=== PATIENT | female | born 1965 | race Caucasian/White ===

== ENCOUNTER → 2017-04-25 | Outpatient (CLI) | payer OTHER, MEDICAID | LOC: BHFA 09:00 | PROVIDERS: ATTEND Internal Medicine | DX: R00.2 Palpitations (principal) ==

== ENCOUNTER → 2017-05-07 | Outpatient (CLI) | payer OTHER, MEDICAID | LOC: BHLMT 10:45 | PROVIDERS: ATTEND Internal Medicine Interventional Cardiology | DX: R55 Syncope and collapse (principal) | CPT/HCPCS: 93306-PO ==

== ENCOUNTER 2018-01-27 07:32 | Day surgery (SDC) | payer OTHER, MEDICAID ==
[2018-01-27] MEDS ORDERED: LR 1,000 ML IV ONE (08:03)
[2018-01-27] MEDS ORDERED: LIDOCAINE 1% 2 ML INJ ID PRN (08:03)
--- NOTE | 2018-01-27 08:29 | PDANEPAE ---
ANE History of Present Illness 52 YO WITH ANEMIA FOR EVAL BY GI ANE Past Medical History - Cardiovascular History Hx Hypertension: No Hx Arrhythmias: No Hx Chest Pain: Yes Hx Coronary Artery / Peripheral Vascular Disease: No Hx CHF / Valvular Disease: No Hx Palpitations: Yes Cardiovascular History Comment: BP FLUCTUATES. BRADYCARDIA EPISODES. DYSLIPIDEMIA. CHEST PAIN. PJCs OCCAS. CONGENITAL ANOMALY R -CORONARY ARTERY. HX-SYNCOPAL EPISODES - Pulmonary History Hx COPD: Yes Hx Asthma/Reactive Airway Disease: Yes Hx Recent Upper Respiratory Infection: No Hx Oxygen in Use at Home: Yes O2 in Use at Home (L/minute): 02 2.5 L NOC Hx Sleep Apnea: Yes Sleep Apnea Screening Result - Last Documented: Positive Pulmonary History Comment: BRONCHITIS. MULTIPLE CHEMICAL SENSITIVITIES. SLEEP APNEA - NO CPAP CURRENTLY - Neurologic History Hx Cerebrovascular Accident: No Hx Seizures: No Hx Dementia: No Neurologic History Comment: CHILDHOOD SEIZURES. MULTIPLE HEAD TRAUMAS W/LOC - Endocrine History Hx Diabetes: No Hypothyroid: No Hyperthyroid: No Obesity: no - Renal History Hx Renal Disorders: Yes Renal History Comment: INCONTINENCE. GLOMERULAR NEPHRITIS - Liver History Hx Hepatic Disorders: Yes Hepatic History Comment: FATTY LIVER DISEASE - NON ALCOHOLIC & CYST - Neurological & Psychiatric Hx Hx Neurological and Psychiatric Disorders: Yes Neurological / Psychiatric History Comment: ANXIETY - Cancer History Hx Cancer: Yes Cancer History Comment: BASAL CELL REMOVED - Congenital Disorder History Hx Congenital Disorders: No - GI History GERD: no Hx Gastrointestinal Disorders: Yes Gastrointestinal History Comment: GERD. VASCULAR SML INTESTINAL ECTASIAS & BACTERIAL OVERGROWTH - Other Health History Other Health History: SCABIES RECURRENT - HANDS/ELBOWS. IRON DEFICIENCY ANEMIA - RECEIVES IRON INFUSIONS 2-3 X YRLY. HX - HYPO -GAMMA GLOBULNEMIA. DVT YEARS AGO L LEG. TROUBLESOME BLEEDER - POST OP & POST TRAUMA - Chronic Pain History Chronic Pain: Yes (LOW BACK PAIN) - Surgical History Prior Surgeries: CHOLECYSTECTOMY. L SHOULDER SCOPE. RECONSTRUCTION FACE - TRAUMA. BLEPHAROPLASTY. DOUBLE BALLOON ENTEROSCOPY GI PROCEDURE ANE Review of Systems Review of Systems: - Exercise capacity METS (RN): 2 METS ANE Patient History - Allergies Allergies/Adverse Reactions: codeine Allergy (Verified 01/27/18 08:15) NAUSEA & VOMITIN hydrocodone Allergy (Verified 01/27/18 08:15) NAUSEA & VOMITING ketamine Allergy (Verified 01/27/18 08:15) "OUT OF BODY EXPERIENCE" oxycodone [Oxycodone] Allergy (Verified 01/27/18 08:15) NAUSEA & VOMITING - Home Medications Home medications: home medication list seen and reviewed Home Medications: RETIN-A 04/07/10 [Last Taken 01/24/18] Albuterol Sulfate [Ventolin] 0 mg IH AD 08/26/11 [Last Taken 01/27/18] Clindamycin 01/17/15 [Last Taken 01/26/18] Pantoprazole Sodium 01/17/15 [Last Taken 01/26/18] Aspirin 01/21/18 [Last Taken 01/20/18] Dulera 100 Mcg/5 Mcg Inhaler 01/21/18 [Last Taken 01/26/18] Iprat-Albut 0.5-3(2.5) mg/3 ml 01/21/18 [Last Taken 01/27/18] Montelukast Sodium 01/21/18 [Last Taken 01/25/18] Namenda 5 mg (*) 01/21/18 [Last Taken 01/26/18] Permethrin 5% 01/21/18 [Last Taken 01/24/18] Ranitidine HCl 01/21/18 [Last Taken 01/26/18] - NPO status NPO Since - Liquids (Date): 01/26/18 NPO Since - Liquids (Time): 23:00 NPO Since - Solids (Date): 01/26/18 NPO Since - Solids (Time): 23:00 - Anes Hx Anes Hx: post operative cognitive dysfunction - Smoking Hx Smoking Status: Never smoked Marijuana use: No - Alcohol Use Alcohol Use: None - Family Anes Hx Family Anes Hx: none ANE Labs/Vital Signs - Vital Signs Height: 170.18 cm Weight: 71.668 kg ANE Physical Exam - Airway Neck exam: FROM Mallampati Score: Class 2 Mouth exam: normal dental/mouth exam - Pulmonary Pulmonary: no respiratory distress, clear to auscultation - Cardiovascular Cardiovascular: regular rate and rhythym, no murmur, rub, or gallop - ASA Status ASA Status: III ANE Anesthesia Plan Anesthesia Plan: GA with mask, MAC
[2018-01-27] MEDS ORDERED: PROPOFOL/EMULSION 500 MG/50 ML BOTTLE IV ONE (09:16)
[2018-01-27] MEDS ORDERED: LIDOCAINE 2% 2 ML INJ ONE ×2 (09:16)
--- NOTE | 2018-01-27 09:17 | PDGENHP ---
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 fhx cc dysphagia Pertinent Past, Social, Family History: no tobacco, very rare alcohol. fhx - stomch uncle, mouth cacner throat cancer. closed head injury Relevant Physical Exam: A+Ox3. CTA. S1S2, RR. +N S ,soft tnder no r/g Cardiorespiratory Assessment: class 3
[2018-01-27] MEDS ORDERED: NALOXONE HCL 0.4 MG/ML INJ IVP PRN (09:21)
--- NOTE | 2018-01-27 09:21 | POSTANESTH ---
Post Anesthetic Evaluation Cardiovascular Status: Normal, Stable Respiratory Status: Normal, Stable Level of Consciousness/Mental Status: Can Participate in Eval Pain Control: Adequate, Prn Tx Ordered Nausea/Vomiting Control: Adequate, Prn Tx Ordered Complications Possibly Related to Anesthesia: None Noted
[2018-01-27] MEDS ORDERED: PROPOFOL 200 MG/20 ML VIAL ONE (09:56)
--- NOTE | 2018-01-27 10:43 | GIREPORT ---
[facility] Surgical Services - Endoscopy Department Patient Name: Claudette Hutchinson Procedure Date: 01/27/2018 9:18 AM Patient Type: Outpatient Attending MD/ ER Physician: Italo Dumont Procedure: Colonoscopy Indications: Screening in patient at increased risk: Family history of 1st-degree relative with colorectal cancer before age 60 years Providers: Shukri Trujillo MD Medicines: Propofol per Anesthesia Complications: No immediate complications. Estimated blood loss: Minimal. Description of Procedure: After obtaining informed consent, the scope was passed under direct vis ion. Throughout the procedure, the patient's blood pressure, pulse, and oxyg en saturations were monitored continuously. The Colonoscope with irrigatio n channel was introduced through the anus and advanced to the terminal il eum, with identification of the appendiceal orifice and IC valve. The colono scopy was performed without difficulty. The patient tolerated the procedure w ell. The quality of the bowel preparation was good. Findings: The digital rectal exam was normal. The terminal ileum appeared normal. A few medium-mouthed diverticula were found in the sigmoid colon and descending colon. A 2 mm polyp was found in the recto-sigmoid colon. The polyp was remove d with a cold biopsy forceps. Resection and retrieval were complete. Giselle mated blood loss was minimal. Two polyps were found in the recto-sigmoid colon. The polyps were 3 to 4 mm in size. These polyps were removed with a piecemeal technique using a c old biopsy forceps. Resection and retrieval were complete. Estimated blood loss was minimal. The exam was otherwise without abnormality. Estimated Blood Loss: Estimated blood loss was minimal. Post Op Diagnosis: - The examined portion of the ileum was normal. - Diverticulosis in the sigmoid colon and in the descending colon. - One 2 mm polyp at the recto-sigmoid colon, removed with a cold biopsy forceps. Resected and retrieved. - Two 3 to 4 mm polyps at the recto-sigmoid colon, removed piecemeal us ing a cold biopsy forceps. Resected and retrieved. - The examination was otherwise normal. Recommendation: - Await pathology results. - My office will call with the pathology result with 5-7 days. If you h ave not heard from my office by 12-14, do not assume the pathology is ana l, please call [phone] to get the pathology results. - Repeat colonoscopy in 5 years. - High fiber diet indefinitely. - 30-35 grams of dietary fiber per day. Can use supplemental fiber. - A high fiber diet may decrease risk of complications from diverticulo sis. There is no need to avoid seeds or nuts. - Patient has a contact number available for emergencies. The signs and symptoms of potential delayed complications were discussed with the pat ient. Return to normal activities tomorrow. Written discharge instructions we re provided to the patient. - Continue present medications. - See EGD for other recommendations - Return to GI clinic as previously scheduled. - Return to primary care physician as previously scheduled. - Thank you for allowing me to help in your patient's care. Do not hesi jimenez to call with any questions. Attending Participation: I personally performed the entire procedure. Ronnie Watt M.D Shukri Trujillo MD 01/27/2018 10:42:52 AM This report has been signed electronicallyMathew MD Ronnie Number of Addenda: 0 Note Initiated On: 01/27/2018 9:18 AM Total Procedure Duration Time 0 hours 16 minutes 45 seconds [email or web address]
--- NOTE | 2018-01-27 10:48 | GIREPORT ---
[facility] Surgical Services - Endoscopy Department Patient Name: Claudette Hutchinson Procedure Date: 01/27/2018 9:15 AM Patient Type: Outpatient Attending MD/ ER Physician: Italo Dumont Procedure: Upper GI endoscopy Indications: Dysphagia Providers: Shukri Trujillo MD Medicines: Propofol per Anesthesia = Iv genreal w/o airway Complications: No immediate complications. Estimated blood loss: Minimal. Description of Procedure: After obtaining informed consent, the endoscope was passed under direct vision. Throughout the procedure, the patient's blood pressure, pulse, and oxygen saturations were monitored continuously. The Endoscope was intro duced through the mouth, and advanced to the third part of duodenum. The uppe r GI endoscopy was accomplished without difficulty. The patient tolerated th e procedure well. Findings: The examined esophagus was normal. Biopsies were obtained from the prox imal and distal esophagus with cold forceps for histology of suspected eosinophilic esophagitis. A guidewire was placed and the scope was withdrawn. Dilation was performed with a Savary dilator with no resista nce at 60 Fr. The dilation site was examined following endoscope reinsertio n and showed no change. Estimated blood loss: none. Diffuse mild inflammation was found in the entire duodenum. Biopsies we re taken with a cold forceps for histology. Estimated blood loss was minim al. A hiatal hernia was present. A single medium semi-sessile polyp with no bleeding and no stigmata of recent bleeding was found in the gastric fundus. The polyp was removed with a piecemeal technique using a cold biopsy forceps. Resection and retrie jessie were complete. Estimated blood loss was minimal. Diffuse mild inflammation characterized by erythema, friability and granularity was found in the entire examined stomach. Biopsies were blanca en with a cold forceps for histology. Estimated blood loss was minimal. The exam was otherwise without abnormality. Estimated Blood Loss: Estimated blood loss was minimal. Post Op Diagnosis: - Normal esophagus. Biopsied. Dilated. - Duodenitis. Biopsied. - Hiatal hernia. - A single gastric polyp. Resected and retrieved. - Gastritis. Biopsied. - The examination was otherwise normal. Recommendation: - Await pathology results. - My office will call with the pathology result with 5-7 days. If you h ave not heard from my office by 12-14, do not assume the pathology is ana l, please call [phone] to get the pathology reults. - Follow an antireflux regimen. - Continue present medications. - Perform a colonoscopy today. - Return to GI clinic as previously scheduled. - Return to primary care physician as previously scheduled. - Thank you for allowing me to help in your patient's care. Do not hesi jimenez to call with any questions. Attending Participation: I personally performed the entire procedure. Ronnie Watt M.D Shukri Trujillo MD 01/27/2018 10:48:30 AM This report has been signed electronicallyMathew MD Ronnie Number of Addenda: 0 Note Initiated On: 01/27/2018 9:15 AM [email or web address]
[2018-01-27 12:01] VITALS: BP 119/75
== END 2018-01-27 11:48 | disposition home or self-care (01) ==
LOC: FSGY 07:32
PROVIDERS: ATTEND Internal Medicine Gastroenterology
PROC: 0DB98ZX Excision of Duodenum, Via Natural or Artificial Opening Endoscopic, Diagnostic (ICD-10-PCS; 2018-01-27)
PROC: 0DB68ZX Excision of Stomach, Via Natural or Artificial Opening Endoscopic, Diagnostic (ICD-10-PCS; 2018-01-27)
PROC: 0DB18ZX Excision of Upper Esophagus, Via Natural or Artificial Opening Endoscopic, Diagnostic (ICD-10-PCS; 2018-01-27)
PROC: 0DB38ZX Excision of Lower Esophagus, Via Natural or Artificial Opening Endoscopic, Diagnostic (ICD-10-PCS; 2018-01-27)
PROC: 0DBN8ZX Excision of Sigmoid Colon, Via Natural or Artificial Opening Endoscopic, Diagnostic (ICD-10-PCS; principal; 2018-01-27 09:00)
PROC: 0D758ZZ Dilation of Esophagus, Via Natural or Artificial Opening Endoscopic (ICD-10-PCS; 2018-01-27 09:00)
DX: Z12.11 Encounter for screening for malignant neoplasm of colon (principal); R13.10 Dysphagia, unspecified; K63.5 Polyp of colon; K57.30 Diverticulosis of large intestine without perforation or abscess without bleeding; K29.80 Duodenitis without bleeding; K44.9 Diaphragmatic hernia without obstruction or gangrene; K31.7 Polyp of stomach and duodenum; K29.70 Gastritis, unspecified, without bleeding; K21.9 Gastro-esophageal reflux disease without esophagitis; D50.9 Iron deficiency anemia, unspecified; J45.909 Unspecified asthma, uncomplicated; G47.30 Sleep apnea, unspecified; Z80.0 Family history of malignant neoplasm of digestive organs; Z86.718 Personal history of other venous thrombosis and embolism; Z79.82 Long term (current) use of aspirin
CPT/HCPCS: J2704

== ENCOUNTER → 2018-02-20 | Outpatient (CLI) | payer OTHER, MEDICAID | LOC: FIMAGING 07:10 | PROVIDERS: ATTEND Physician Assistant | DX: K76.0 Fatty (change of) liver, not elsewhere classified (principal); R14.3 Flatulence; D50.9 Iron deficiency anemia, unspecified; K58.0 Irritable bowel syndrome with diarrhea; R10.819 Abdominal tenderness, unspecified site ==

== ENCOUNTER → 2018-03-24 | Outpatient (CLI) | payer OTHER, MEDICAID | LOC: FIMAGING 07:05 | PROVIDERS: ATTEND Physician Assistant | DX: D25.9 Leiomyoma of uterus, unspecified (principal); N85.8 Other specified noninflammatory disorders of uterus ==

== ENCOUNTER → 2018-03-25 | Outpatient (CLI) | payer OTHER, MEDICAID | PROVIDERS: ATTEND Physician Assistant | DX: R13.14 Dysphagia, pharyngoesophageal phase (principal); R09.89 Other specified symptoms and signs involving the circulatory and respiratory systems | CPT/HCPCS: 92611-GN ==